=== PATIENT | male | born 1980 | race Caucasian/White ===

== ENCOUNTER 2023-12-27 13:49 | Outpatient (CLI) | payer BC | END 2023-12-27 13:50 | disposition home or self-care (01) | LOC: CSHMRI 13:49 | PROVIDERS: ATTEND Internal Medicine | DX: M75.101 Unspecified rotator cuff tear or rupture of right shoulder, not specified as traumatic (principal); S43.014S Anterior dislocation of right humerus, sequela; S42.291A Other displaced fracture of upper end of right humerus, initial encounter for closed fracture; S43.431A Superior glenoid labrum lesion of right shoulder, initial encounter; M75.111 Incomplete rotator cuff tear or rupture of right shoulder, not specified as traumatic; M25.411 Effusion, right shoulder; M19.011 Primary osteoarthritis, right shoulder; M89.8X1 Other specified disorders of bone, shoulder ==